=== PATIENT | male | born 1965 | race Caucasian/White ===

== ENCOUNTER 2022-04-14 09:50 | Emergency (ER) | payer OTHER | END 2022-04-14 17:37 | disposition home or self-care (01) | LOC: ER 09:50 | DX: N23 Unspecified renal colic (principal) ==

== ENCOUNTER 2023-07-22 11:54 | Emergency (ER) | payer OTHER ==
[~2023-07-22] VITALS: Ht 193 cm; Wt 95.3 kg
[2023-07-22] MEDS ORDERED: CRESTOR5 MG (13:12)
[2023-07-22] MEDS ORDERED: ZESTRIL2.5 MG (13:12)
[2023-07-22] MEDS ORDERED: CHILDREN'S ASPI81 MG (13:12)
[2023-07-22 13:44] LABS: URINE APPEARANCE Clear; URINE BILIRRUBIN Negative (NEGATIVE); URINE BLOOD Negative; URINE COLOR Yellow; URINE GLUCOSE Negative (NEGATIVE); URINE LEUKOCYTE Negative; URINE NITRATE Negative; URINE PROTEIN Trace (NEGATIVE)
[2023-07-22 13:48] LABS: URINE BACTERIA 6.2 uL (0.0-1933); URINE RBC 11.3 uL (0.0-20.8)
[2023-07-22 13:54] LABS: URINE EPITHELIAL CELLS 0.6 uL (0.0-38.8); URINE WBC 1.3 uL (0.0-23.2)
[2023-07-22 14:10] LABS: HEMATOCRIT 43.5 % (39.0-48.0); HEMOGLOBIN 14.8 g/dL (13-16.00); MEAN CELL VOLUME 89.9 fL (80.0-100.00); MEAN CORPUSCULAR HEMOGLOBIN 30.7 pg (27.00-32.0); MEAN CORPUSCULAR HGB CONC 34.2 g/dl (32.0-36.0); PLATELET COUNT 228 K/uL (150-450); RED BLOOD COUNT 4.83 M/uL (4.00-6.00); RED CELL DISTRIBUTION WIDTH 13.9 % (11.5-14.5)
[2023-07-22 14:13] LABS: INR 1.01; PARTIAL THROMBOPLASTIN TIME 27.7 SECONDS (22.0-34.0); PROTHROMBIN TIME 10.6 SECONDS (9.0-11.5)
[2023-07-22 14:29] LABS: ALBUMIN 4.3 gm/dL (3.4-5.0); BILIRUBIN TOTAL 0.61 mg/dL (0.3-1.2); CALCIUM 9.9 mg/dL (8.5-10.1); CREATININE SERUM 0.96 mg/dL (0.70-1.30); GFR 80.73; GLOBULINA 4.1 G/DL (2.4-3.5); POTASSIUM 3.96 mEq/L (3.5-5.1); TOTAL PROTEIN 8.4 gm/dL (6.4-8.2)
[2023-07-22 14:37] LABS: PLT IN CITRATE 228 K/uL (150-450)
[2023-07-22 15:22] LABS: COL EPI 147 SECONDS (82-175)
== END 2023-07-22 20:26 | disposition home or self-care (01) ==
LOC: ER 11:54
PROVIDERS: General Practice
DX: K40.90 Unilateral inguinal hernia, without obstruction or gangrene, not specified as recurrent (principal); Z20.822 Contact with and (suspected) exposure to COVID-19; I10 Essential (primary) hypertension